=== PATIENT | male | born 1965 | race Two or more races ===

== ENCOUNTER 2021-07-22 18:40 | Emergency (ER) | payer OTHER ==
[~2021-07-22] VITALS: Ht 162.6 cm; Wt 88.6 kg
[2021-07-22 20:00] VITALS: BP 123/65
[2021-07-22 20:21] LABS: COVID AG,FIA SOURCE NASOPHARYNGEAL
[2021-07-23] MEDS ORDERED: INSU100V36 SQ (08:28)
[2021-07-23] MEDS ORDERED: INSU100I26 SQ (08:32)
[2021-07-23] MEDS ORDERED: MethylPREDNISolone SOD SUCC 125 MG/2 ML VIAL ONE (11:05)
== END 2021-07-22 21:00 | disposition home or self-care (01) ==
LOC: EMS 18:41
DX: Z20.822 Contact with and (suspected) exposure to COVID-19 (principal); E11.9 Type 2 diabetes mellitus without complications
CPT/HCPCS: 99283; J2930

== ENCOUNTER 2021-07-23 05:35 | Day surgery (SDC) | payer OTHER ==
[~2021-07-23] VITALS: Ht 170.2 cm; Wt 90.9 kg
[2021-07-23] MEDS ORDERED: LIDOCAINE 4% 50 ML SOLUTION TP ONE (05:36)
[2021-07-23] MEDS ORDERED: LIDOCAINE 2% 30 ML JELLY TP ONE (05:36)
[2021-07-23] MEDS ORDERED: BENZOCAINE 20% 50 MCG/SPRAY 57 GM TP ONE (05:36)
[2021-07-23] MEDS ORDERED: SODIUM CHLORIDE 0.9% 1,000 ML IV ONE (06:30)
[2021-07-23] MEDS ORDERED: SODIUM CHLORIDE 0.9% 1,000 ML ONE (06:54)
[2021-07-23] MEDS ORDERED: FentaNYL CITRATE PF 100 MCG/2 ML VIAL ONE (07:31)
[2021-07-23] MEDS ORDERED: MIDAZOLAM HCL 5 MG/ML VIAL ONE (07:31)
[2021-07-23 07:51] LABS: GLUCOMETER DEV NAME(LOC) SDS.; GLUCOSE,POINT OF CARE 312 MG/DL (70-110)
[2021-07-23] MEDS ORDERED: INSU100V36 SQ (08:28)
[2021-07-23] MEDS ORDERED: INSU100I26 SQ (08:32)
[2021-07-23] MEDS ORDERED: MethylPREDNISolone SOD SUCC 125 MG/2 ML VIAL IVP ONE (10:45)
== END 2021-07-23 13:45 | disposition home or self-care (01) ==
LOC: SURGERY 05:35
PROVIDERS: ATTEND Internal Medicine Critical Care Medicine
DX: J38.4 Edema of larynx (principal); B37.0 Candidal stomatitis; I10 Essential (primary) hypertension; E11.9 Type 2 diabetes mellitus without complications; Z79.899 Other long term (current) drug therapy; Z98.890 Other specified postprocedural states; Z79.4 Long term (current) use of insulin
CPT/HCPCS: 31623; 31624; 71045; 82962; 87015; 87070; 87101; 87206; 87220; 88112; 88184; 88185; 88305; 88312; J2250; J3010; J7030; Z7610